=== PATIENT | male | born 1945 | race Caucasian/White ===

== ENCOUNTER → 2018-11-10 | Outpatient (CLI) | payer MEDICARE ==
--- NOTE | 2018-11-10 12:02 | PCVCIMAG ---
EXAM: AORTOILIAC DUPLEX INDICATION: Abdominal aortic aneurysm. FINDINGS: AORTA: Suprarenal aorta measures maximum diameter of 3.2 cm. There is a fusiform infrarenal aortic aneurysm. The infrarenal aorta measures maximum diameter of 3.5 x 4.5 cm. No aortic stenosis. RIGHT COMMON ILIAC ARTERY: Maximum diameter is 2.0 cm. No significant stenosis. RIGHT EXTERNAL ILIAC ARTERY: No significant stenosis. LEFT COMMON ILIAC ARTERY: Maximum diameter is 2.1 cm. No significant stenosis. LEFT EXTERNAL ILIAC ARTERY: No significant stenosis. IMPRESSION: 4.5 cm infrarenal abdominal aortic aneurysm. No prior studies available for comparison. Further evaluation with CTA of the abdomen and pelvis is suggested. 2.0 cm fusiform aneurysm mid right common iliac artery. 2.1 cm fusiform aneurysm proximal/mid left common iliac artery. LOC:[id number]
== END | disposition home or self-care (01) ==
LOC: PCVCIMAG 10:43
PROVIDERS: ATTEND Internal Medicine Cardiovascular Disease
DX: I71.4 Abdominal aortic aneurysm, without rupture (principal); I25.10 Atherosclerotic heart disease of native coronary artery without angina pectoris; G25.0 Essential tremor; E78.00 Pure hypercholesterolemia, unspecified; J44.9 Chronic obstructive pulmonary disease, unspecified; Z72.0 Tobacco use; Z79.82 Long term (current) use of aspirin
CPT/HCPCS: 36415; 80061; 93005; 93978; G0463

== ENCOUNTER → 2019-02-27 | Outpatient (CLI) | payer MEDICARE | END | disposition home or self-care (01) | LOC: PCVCCLINIC 11:00 | PROVIDERS: ATTEND Internal Medicine Cardiovascular Disease | DX: I25.10 Atherosclerotic heart disease of native coronary artery without angina pectoris (principal); E78.00 Pure hypercholesterolemia, unspecified; I71.4 Abdominal aortic aneurysm, without rupture; I10 Essential (primary) hypertension; I72.3 Aneurysm of iliac artery; J44.9 Chronic obstructive pulmonary disease, unspecified; Z87.891 Personal history of nicotine dependence | CPT/HCPCS: 36415; 80061; 93005; G0463 ==

== ENCOUNTER → 2019-06-29 | Outpatient (CLI) | payer MEDICARE, OTHER ==
--- NOTE | 2019-06-29 16:45 | PCVCIMAG ---
APPROVED REPORT Study performed: 06/29/2019 11:34:43 Exam: Stress Echocardiogram Indication: CAD s/p DC,PCI,Stents to LAD,RCA, Patient Location: Echo lab Stress Nurse: Gita Davey RN Room #: 2 Status: routine Ht: 5 ft 9 in HR: 63 bpm BP: 100/60 mmHg Rhythm: First degree AV Block Medical History Medical History: CAD s/p DC,PCI, STENTS, COPD Cardiac Risk Factors: HTN, Hyperlipidemia Previous Cardiac Procedures: PCI Exercise History: Sedentary Physical Disabilities: essential tremors Procedure The patient underwent an Exercise Stress Test using the Ameya Protocol. Blood pressure, heart rate, and EKG were monitored. An Echocardiogram was performed by substance abuse technician in four stages in quad fashion. At peak stress, four selected images were obtained and placed side by side with resting images for comparison. Stress Test Details Stress Test: Exercise stress testing was performed using a Ameya protocol. HR Resting HR: 62 bpmMax Heart Rate (APMHR): 148 bpm Max HR Achieved: 129 bpmTarget HR (85% APMHR): 125 bpm % of APMHR: 87 Recovery HR: 75 bpm HR response to stress: Normal HR response to stress BP Resting BP: 100/60 mmHg Max BP: 140/70 mmHg Recovery BP: 110/64 mmHg BP response to stress: Normal blood pressure response to stress. ECG Resting ECG: Sinus Rhythm, , 1st degree AV block Stress ECG: Sinus Rhythm, NSSTT changes ST Change: Non-ischemic Arrhythmia: occ PACs PVCs Recovery ECG: Sinus Rhythm,, 1st degree AV block Recovery ST Change: Non-ischemic Recovery Arrhythmia: occ PACs Clinical Reason for Termination: Maximal effort Stress Symptoms: fatigue Exercise duration: 3 min 18 sec Highest Stage Achieved: Stage 1: 1.7 mph at 10% grade. Exercise capacity: 4.7 METs Overall Exercise Capacity for Age: Poor Scale: Sedentary Angina Score: None No complications. Stress ECG Conclusion The patient exercised according to the AMEYA protocol for 3:18 mins; achieving a work level of 4.7 METS. The resting heart rate of 63 bpm dae to a maximum heart rate of 129 bpm. This value represent 87% of the maximal, age-predicted heart rate. The resting blood pressure of 100-60 mmHg, dae to a maximum blood pressure of 140/70 mmHg. The exercise test was stopped due to fatigue . Pre-Stress Echo The resting Echocardiogram showed normal left ventricular contractility with an estimated Ejection Fraction of about 50-55%. The resting Echocardiogram demonstrated wall motion abnormality in the inferior wall consistent with old damage . Post-Stress Echo The stress Echocardiogram showed normal left ventricular contractility with an estimated Ejection Fraction of about 60-65%. A Fixed defect in the inferior and posterior barcenas is seen consistent with old DC Conclusion Clinical Response: Non-ischemic Exercise Capacity: Below Average Stress ECG Response: Non-ischemic Stress Echo Images: Non-ischemic No clinical, EKG or echocardiographic evidence for ischemia. No echocardiographic evidence for exercise induced ischemia. Normal stress echocardiogram with maximal exercise stress. Normal color doppler. No regurgitation or stenosis present on pulmonic, mitral, or tricuspid . Mild AI is seen. <Conclusion> No clinical, EKG or echocardiographic evidence for ischemia. No echocardiographic evidence for exercise induced ischemia. Normal stress echocardiogram with maximal exercise stress. Normal color doppler. No regurgitation or stenosis present on pulmonic, mitral, or tricuspid . Mild AI is seen.
--- NOTE | 2019-06-29 23:59 | PCVCIMAG ---
EXAM: AORTOILIAC DUPLEX INDICATION: Abdominal aortic aneurysm. FINDINGS: AORTA: Suprarenal aorta measures maximum diameter of 3.0 cm. There is a fusiform infrarenal aortic aneurysm. The infrarenal aorta measures maximum diameter of 3.5 x 4.5 cm. No aortic stenosis. RIGHT COMMON ILIAC ARTERY: Maximum diameter is 1.9 cm. No significant stenosis. RIGHT EXTERNAL ILIAC ARTERY: No significant stenosis. LEFT COMMON ILIAC ARTERY: Maximum diameter is 2.0 cm. No significant stenosis. LEFT EXTERNAL ILIAC ARTERY: No significant stenosis. IMPRESSION: 4.5 cm infrarenal abdominal aortic aneurysm unchanged since November 2018 study. LOC:[id number]
== END | disposition home or self-care (01) ==
LOC: PCVCIMAG 10:20
PROVIDERS: ATTEND Internal Medicine Cardiovascular Disease
DX: I71.4 Abdominal aortic aneurysm, without rupture (principal); I10 Essential (primary) hypertension; E78.00 Pure hypercholesterolemia, unspecified
CPT/HCPCS: 93325; 93351; 93978